=== PATIENT | male | born 1950 | race Caucasian/White ===

== ENCOUNTER 2022-02-04 08:33 | Outpatient (RCR) | payer OTHER, SELFPAY ==
[2022-02-04 08:40] VITALS: TEMP 36.1
--- NOTE | 2022-02-04 09:20 | PCM.WC.HP ---
History of Present Illness Date of Service: 02/04/22 Chief Complaint: Follow-up left lateral foot diabetic foot wound History of Wound: 71-year-old it still wears his work boots developed a blister on his left lateral foot that opened. His carton liner noticed a bloody sock. About a month ago this all occurred was seen at [facility] and told to soak in Epson salt and take Keflex was also put on Silvadene cream over top. He appears today with a hardened scab on his left lateral foot for evaluation Progress of Wound: Today it is a hardened scab that has been removed with a #7 curette and healed patient will be discharged from the wound center [facility] Medical History (Updated 02/04/22 @ 09:25 by Paola Wick NP, DATA REPORTING ANALYST-C) Dementia Diabetes type 2, uncontrolled Hyperlipidemia Hypertension Migraines Restless legs Home Medications alogliptin 25 mg PO DAILY 02/04/22 [History Last Taken Unknown] glipizide 10 mg PO BID 02/04/22 [History Last Taken Unknown] insulin detemir U-100 [Levemir Flexpen] 10 unit SUBCUT QHS 02/04/22 [History Last Taken Unknown] losartan 02/04/22 [History Last Taken Unknown] metformin 1,000 mg PO BID 02/04/22 [History Last Taken Unknown] pravastatin 80 mg PO DAILY 02/04/22 [History Last Taken Unknown] primidone 50 mg PO QHS 02/04/22 [History Last Taken Unknown] propranolol 20 mg PO BID 02/04/22 [History Last Taken Unknown] topiramate 100 mg PO DAILY 02/04/22 [History Last Taken Unknown] Allergy/AdvReac Type Severity Reaction Status Date / Time No Known Allergies Allergy Unverified 01/19/22 09:10 ROS Constitutional Constitutional: Reports systems reviewed and no addt'l complaints, except as documented Eyes Eyes: Reports systems reviewed and no addt'l complaints, except as documented ENT HEENT: Reports systems reviewed and no addt'l complaints, except as documented Cardiovascular Cardiovascular: Reports systems reviewed and no addt'l complaints, except as documented Respiratory/Chest Respiratory/Chest: Reports systems reviewed and no addt'l complaints, except as documented Gastrointestinal Gastrointestinal: Reports systems reviewed and no addt'l complaints, except as documented Genitourinary Genitourinary: Reports systems reviewed and no addt'l complaints, except as documented Musculoskeletal Musculoskeletal: Reports systems reviewed and no addt'l complaints, except as documented Integumentary Integumentary: Reports skin ulcer Neurologic Neurologic: Reports systems reviewed and no addt'l complaints, except as documented Psychiatric Psychiatric: Reports systems reviewed and no addt'l complaints, except as documented Endocrine Endocrinology: Reports systems reviewed and no addt'l complaints, except as documented Hematologic/Lymphatic Hematologic/Lymphatic: Reports systems reviewed and no addt'l complaints, except as documented Allergic/Immunologic Allergic/Immunologic: Reports systems reviewed and no addt'l complaints, except as documented Vital Signs Vital Signs Vital Signs: 02/04/22 08:40 Temperature 96.9 F L Temperature Source Temporal Physical Exam Const oriented x3 General Appearance: cooperative Exam Limitations: no limitations Neck full ROM General: normal visual inspection Resp normal respiratory effort Effort and Inspection: able to speak in complete sentences Auscultation: clear to auscultation bilaterally Cardio regular rate and regular rhythm Palpation: normal PMI Rate: regular rate Rhythm: regular rhythm GI Auscultation: normoactive bowel sounds Palpation: soft and no hepatosplenomegaly external exam normal Extremity normal to inspection General Extremity: normal exam except as noted Skin Wound Narrative: Hardened scabbed area on left lateral foot that is starting to lift off around the edges. Neuro oriented x3 Psych Appearance: grossly normal Speech: normal speech Thought Content: normal thought content Judgement: judgement good Debridement Note Debridement Note Wound debrided: DFU left foot Laterality: Left Wound Grade/Stage: Stage II Anesthesia Used: 5% Lidocaine Gel Depth: Down to and including healthy tissue Percentage of wound debrided: 100 Instrument Used: 7mm curette Tissue Removed: Devitalized tissue Severity: Limited To Skin Breakdown Amount of bleeding with debridement: None Bleeding Controlled with: Pressure Patient tolerated procedure: Patient tolerated procedure well Post-Debridement Measurements and Additional Note: Post-Debridement Measurements/Treatment - Nurse 1 - General Ulcer Assessment Start: 02/04/22 08:40 Freq: Status: Active Protocol: CLYDE Activity Type Activity Date Activity User E-Sign Co-Sign Detail Recorded Client Recorded Date Recorded By Document 02/04/22 08:40 SINTIA [id number] 02/04/22 08:51 AK 02/04/22 08:40 WC - Today's Visit Information Type of service 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 Yes WC - Nurse 1 - General Ulcer Measurement Start: 02/04/22 08:40 Freq: Status: Active Protocol: Activity Type Activity Date Activity User E-Sign Co-Sign Detail Recorded Client Recorded Date Recorded By Document 02/04/22 08:40 AK [id number] 02/04/22 08:51 AK 02/04/22 08:40 Wound Center Nurse 1 #1 Left lateral foot -Combined with other wound No -Current Size (cm) - Length 0.6 -Current Size (cm) - Width 1.6 -Current Size (cm) - Depth 0.1 -Total Square Cm 0.96 -Photo Taken Yes -Epithelialization None Present -Tunneling No -Undermining/Tunneling No -Circular Undermining No -Change in Wound Grade/Stage No -Exudate Amt Medium -Exudate Type Serosanguineous -Wound Margin Distinct, Outline Attached -Granulation Amt None Present (0 %) -Granulation Quality N/A -Slough/Fibrin Yes -Necrosis Amt Small (1-33%) -Necrotic Tissue Type Adherent Slough -Structure Exposed N/A -Texture (Ayala-wound Skin Appearance) Assessed,Callus -Moisture (Ayala-wound Skin Appearance) Assessed,Dry/ Scaly -Color (Ayala-wound Skin Appearance) No Abnormality, Assessed -Temperature (Ayala-wound Skin No Abnormality Appearance) (Pt Warm) -Tenderness on Palpation (Ayala-wound No Skin Appearance) -Ulcer Cleansing Rinsed/ Irrigated with Saline -Foul Odor after Cleansing No -Anesthetic Used 4% Lidocaine Solution Right Calf (cm) 37.2 Right Ankle (cm) 24.3 Left Calf (cm) 34.3 Left Ankle (cm) 25.1 WC - Nurse 2 - General Ulcer CM Notes Start: 02/04/22 08:40 Freq: Status: Active Protocol: Activity Type Activity Date Activity User E-Sign Co-Sign Detail Recorded Client Recorded Date Recorded By Document 02/04/22 09:06 [id number] 02/04/22 09:09 MW 02/04/22 09:06 Wound Center Nurse 2 #1 Left lateral foot -Time 09:07 -Correct Patient Yes -Correct Side, Site, Position Yes -Correct Procedure Yes -Procedure Performed No -Post Debridement (cm) - Length 0 -Post Debridement (cm) - Width 0 -Post Debridement (cm) - Depth 0 -Total Square (Post) (cm) 0 -Tunneling No -Undermining/Tunneling No -Circular Undermining No -Wound/Ulcer Outcome Healed- Epithelialized -Ulcer Cleansing Rinsed/ Irrigated with Saline -Foul Odor after Cleansing No -Bioengineered Tissue No -Bleeding Controlled with NA -Treatment Response Procedure Tolerated Well Pain Scale: 0-10 Numeric Is Patient Pain Free? Yes - Nurse 3 - General Ulcer D/C NN Start: 02/04/22 08:40 Freq: Status: Active Protocol: Activity Type Activity Date Activity User E-Sign Co-Sign Detail Recorded Client Recorded Date Recorded By Document 02/04/22 09:10 MW [id number] 02/04/22 09:11 MW 02/04/22 09:10 Wound Care Nurse 3 Left -Lotion applied to leg before Yes compression wrap Pain Scale: 0-10 Numeric Is Patient Pain Free? Yes Teaching: Wound Center Discharge Instructions -Person Taught Patient,Family -Teaching Method Discussion -Response to teaching Verbalize understanding WC - Visit Discharge Discharge Condition Stable Ambulatory Status Ambulatory Transportation Private Auto Accompanied by brother Medication Reconcilliation completed & No provided to patient/care provider Clinical Summary of Care Provided Yes Lab / Micro Data Attestation: I reviewed the patient's lab results. Assessment/Plan Assessment/Plan (1) Diabetic foot ulcers: CODE(S): E11.621 - Type 2 diabetes mellitus with foot ulcer; L97.509 - Non-pressure chronic ulcer of other part of unspecified foot with unspecified severity PLAN: Diabetic foot ulcer resolved patient needs to just use amLactin cream to soften the skin around it and follow-up as needed is discharged from the wound center (2) Type 2 diabetes mellitus: CODE(S): E11.9 - Type 2 diabetes mellitus without complications
== END 2022-02-04 15:20 | disposition home or self-care (01) ==
LOC: WC 08:33
PROVIDERS: PCP Nurse Practitioner; Visit Provider Nurse Practitioner
DX: Z09 Encounter for follow-up examination after completed treatment for conditions other than malignant neoplasm (principal); F03.90 Unspecified dementia, unspecified severity, without behavioral disturbance, psychotic disturbance, mood disturbance, and anxiety; E11.9 Type 2 diabetes mellitus without complications; Z79.4 Long term (current) use of insulin; I10 Essential (primary) hypertension; E78.5 Hyperlipidemia, unspecified; Z79.899 Other long term (current) drug therapy
CPT/HCPCS: 99213; G0463